=== PATIENT | female | born 1995 | race Caucasian/White ===

== ENCOUNTER 2019-02-25 05:57 | Emergency (ER) | payer OTHER ==
[~2019-02-25] VITALS: Ht 167.6 cm; Wt 92.3 kg
[2019-02-25] MEDS ORDERED: NORG1TAB69 PO (06:06)
[2019-02-25 07:41] VITALS: BP 136/77
== END 2019-02-25 08:41 | disposition home or self-care (01) ==
LOC: EMS 06:03
DX: R10.2 Pelvic and perineal pain (principal); R11.10 Vomiting, unspecified; Z91.018 Allergy to other foods